=== PATIENT | female | born 1980 | race Caucasian/White ===

== ENCOUNTER 2020-08-30 02:57 | Emergency (ER) | payer OTHER ==
[~2020-08-30] VITALS: Ht 165.1 cm; Wt 54.4 kg
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
[2020-08-30 03:35] LABS: *BILIRUBIN,URIN NEGATIVE (NEGATIVE); *CLARITY,URINE CLOUDY (CLEAR); *COLOR,URINE LIGHT YELLOW (YELLOW); *KETONES,URINE NEGATIVE (NEGATIVE); *UROBILINOGEN,URINE 0.2 E.U./dl (NORMAL); LEUKOCYTE ESTERASE ,URINE TRACE (NEGATIVE); NITRITE, URINE NEGATIVE (NEGATIVE); UGLUCOSE NEGATIVE (NEGATIVE)
[2020-08-30 03:38] LABS: *URINE HCG, QUAL NEGATIVE (NEGATIVE)
[2020-08-30 03:40] LABS: *BLOOD, URINE TRACE (NEGATIVE)
[2020-08-30 03:45] LABS: RBC,URINE 0-3 /HPF (0-3)
[2020-08-30 03:46] LABS: BACTERIA,URINE MANY /HPF (NONE SEEN); SQUAMOUS EPITHELIAL CELL,UR MANY /HPF (NONE SEEN)
[2020-08-30 03:48] LABS: *AMPHETAMINE, URINE POSITIVE (NEGATIVE); *CANNABINOID, URINE POSITIVE (NEGATIVE); *COCCAINE, URINE POSITIVE (NEGATIVE); *OPIATE, URINE NEGATIVE (NEGATIVE); *PHENCYCLIDINE SCREEN,URINE NEGATIVE (NEGATIVE)
--- NOTE | 2020-08-30 04:13 | NUR ---
Patient discharged to [facility] for booking. Written and verbal after care instructions given to [facility]. [facility] verbalizes understanding of instructions. Pt ambulated out of the ER with steady gait accompanied by [employer]. All belongings with pt.
[2020-08-30 06:13] VITALS: BP 128/77
== END 2020-08-30 04:15 ==
LOC: ER 02:59
DX: Z04.1 Encounter for examination and observation following transport accident (principal); F15.10 Other stimulant abuse, uncomplicated; F14.10 Cocaine abuse, uncomplicated; R07.9 Chest pain, unspecified; M54.5 Low back pain
CPT/HCPCS: 72100; 84703; 87077; 87086; A4663